=== PATIENT | male | born 2000 | race African-American/Black ===

== ENCOUNTER 2018-01-12 21:59 | Emergency (ER) | payer SELFPAY ==
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
[2018-01-13 00:15] VITALS: BP 172/63
--- NOTE | 2018-01-13 08:17 | RAD ---
Indication: RIGHT shoulder pain. Injury 2 months ago. Difficulty lifting and extending arm. Comparison: No relevant prior exams available on the [facility] P[facility] for comparison. Technique: Internal rotation AP, external rotation Grashey, scapular Y, axillary views RIGHT shoulder REPORT AND IMPRESSION: #. Negative for fracture. Normal acromioclavicular and glenohumeral joint alignment. Suggestion of potential os acromiale accessory ossicle at the acromion process. Unremarkable soft tissue contours. R0
== END 2018-01-13 00:13 | disposition home or self-care (01) ==
LOC: ED 21:59
DX: M25.511 Pain in right shoulder (principal); Z87.828 Personal history of other (healed) physical injury and trauma
CPT/HCPCS: 99282

== ENCOUNTER 2018-09-30 23:43 | Emergency (ER) | payer OTHER ==
[2018-10-01] MEDS ORDERED: Naproxen TAB* 250 MG PO ONE (01:13)
--- NOTE | 2018-10-01 02:04 | ED ---
Lower Extremity - HPI Summary HPI Summary: 17-year-old male presents with complaints of left ankle and foot pain. States he was playing basketball with clients at work, he jumped for the ball, and landed causing a "twisting" injury. States he was able to bear weight immediately after the injury but since the pain has progressively worsened and he has not bore any weight due to the pain. Denies numbness or tingling. - History of Current Complaint Chief Complaint: EDExtremityLower Stated Complaint: "TWISTED L ANKLE" PER PT Hx Obtained From: Patient Pain Intensity: 7 - Allergies/Home Medications Allergies/Adverse Reactions: Allergies Allergy/AdvReac Type Severity Reaction Status Date / Time iodine Allergy Nausea And Verified 09/30/18 23:48 Vomiting PMH/Surg Hx/FS Hx/Imm Hx Endocrine/Hematology History: Denies: Hx Anticoagulant Therapy, Hx Blood Disorders, Hx Blood Transfusions, Hx Bone Marrow Disease, Hx Diabetes, Hx Systemic Lupus Erythematosus, Hx Sickle Cell Disease, Hx Thyroid Disease, Hx Anemia, Hx Unexplained Bleeding, Other Endocrine/Hematological Disorders Cardiovascular History: Denies: Hx Aneurysm, Hx Angina, Hx Angioplasty, Hx Atrial Fibrillation, Hx Auto Implanted Cardiovert Defib, Hx Cardiac Arrest, Hx Cardiomegaly, Hx Congenital Heart Disease, Hx Congestive Heart Failure, Hx Coronary Artery Disease, Hx Deep Vein Thrombosis, Hx Embolism, Hx Hypercholesterolemia, Hx Hypotension, Hx Hypertension, Hx Myocardial Infarction, Hx Pacemaker/ICD, Hx Peripheral Vascular Disease, Hx Rheumatic Fever, Hx Syncope, Hx Valvular Heart Disease, Other Cardiovascular Problems/Disorders Respiratory History: Reports: Hx Asthma GI History: Denies: Hx Cirrhosis, Hx Crohn's Disease, Hx Diverticulosis, Hx Gall Bladder Disease, Hx Gastroesophageal Reflux Disease, Hx Gastrointestinal Bleed, Hx Hiatal Hernia, Hx Irritable Bowel, Hx Jaundice, Hx Obstructive Bowel, Hx Ileostomy, Hx Pyloric Stenosis, Hx Ulcer, Hx Urosepsis, Other GI Disorders History: Denies: Hx Acute Renal Failure, Hx Benign Prostatic Hyperplasia, Hx Chronic Renal Failure, Hx Dialysis, Hx Kidney Infection, Hx Kidney Stones, Hx Renal Disease, Other Problems/Disorders Sensory History: Denies: Hx Cataracts, Hx Contacts or Glasses, Hx Eye Injury, Hx Eye Prosthesis, Hx Glaucoma, Hx Legally Blind, Hx Macular Degeneration, Hx Vision Problem, Hx Deafness, Hx Hearing Aid, Hx Hearing Problem, Other Sensory Impairments Opthamlomology History: Denies: Hx Cataracts, Hx Contacts or Glasses, Hx Eye Injury, Hx Eye Prosthesis, Hx Glaucoma, Hx Legally Blind, Hx Macular Degeneration, Hx Vision Problem, Other Sensory Impairments Neurological History: Denies: Hx CVA, Hx Dementia, Hx Developmental Delay, Hx Headaches, Hx Migraine, Hx Nerve Disease, Hx Peripheral Neuropathy, Hx Seizures, Hx Spinal Cord Injury, Hx Transient Ischemic Attacks (TIA), Other Neuro Impairments/ Disorders - Immunization History Immunizations Up to Date: Yes Infectious Disease History: No Infectious Disease History: Denies: Traveled Outside the [place] in Last 30 Days - Family History Known Family History: Positive: Non-Contributory - Social History Occupation: Employed Full-time Lives: With Family Alcohol Use: None Substance Use Type: Reports: None Hx Tobacco Use: No Smoking Status (MU): Never Smoked Tobacco Review of Systems Constitutional: Negative Cardiovascular: Negative Respiratory: Negative Gastrointestinal: Negative Genitourinary: Negative Musculoskeletal: Other - See HPI Skin: Negative Neurological: Negative All Other Systems Reviewed And Are Negative: Yes Physical Exam - Summary Physical Exam Summary: GENERAL APPEARANCE: Well developed, well nourished, alert and cooperative, and appears to be in no acute distress. CARDIAC: Normal S1 and S2. No S3, S4 or murmurs. Rhythm is regular. There is no peripheral edema, cyanosis or pallor. Extremities are warm and well perfused. Capillary refill is less than 2 seconds. Peripheral pulses intact. LUNGS: Clear to auscultation without rales, rhonchi, wheezing or diminished breath sounds. ABDOMEN: Positive bowel sounds. Soft, nondistended, nontender. No guarding or rebound. No masses or hepatosplenomegally. MUSKULOSKELETAL: Normal muscular development. Non-weightbearing left lower extremity. EXTREMITIES: Mild tenderness to the dorsal left foot over the proximal 1st and 2nd metatarsals and to the medial malleolus. No erythema, ecchymosis, edema, or gross deformity noted. Circlulation and sensation intact. SKIN: Skin normal color, texture and turgor with no lesions or eruptions. Triage Information Reviewed: Yes Vital Signs On Initial Exam: Initial Vitals Temp Pulse Resp BP Pulse Ox 98.8 F 84 16 140/89 100 09/30/18 23:45 09/30/18 23:45 09/30/18 23:45 09/30/18 23:45 09/30/18 23:45 Vital Signs Reviewed: Yes Diagnostics - Vital Signs Vital Signs Temp Pulse Resp BP Pulse Ox 09/30/18 23:45 98.8 F 84 16 140/89 100 - Laboratory Lab Statement: Any lab studies that have been ordered have been reviewed, and results considered in the medical decision making process. - Radiology No standard instances Radiology Interpretation Completed By: ED Physician - No acute fracture or dislocation Lower Extremity Course/Dx - Course Course Of Treatment: 17-year-old male presents with complaints of left ankle and foot pain. States he was playing basketball with clients at work, he jumped for the ball, and landed causing a "twisting" injury. States he was able to bear weight immediately after the injury but since the pain has progressively worsened and he has not bore any weight due to the pain. Denies numbness or tingling. Afebrile. VSS. Patient had mild tenderness to the dorsal left foot over the proximal 1st and 2nd metatarsals and to the medial malleolus. No erythema, ecchymosis, edema, or gross deformity noted. Circlulation and sensation intact. Exam otherswise unremarkable. Patient was given naproxen 500 mg 1 tab PO for pain. X-ray of the left foot and ankle showed no acute fracture or dislocation. Will treat for an acute sprain of the left foot and ankle. Patient was placed in CAM boot by the RN. Circulation and sensation intact pre- and post-application. He was provided crutches for progressive return to weightbearing. Recommending OTC analgesics and RICE. He is to follow up with orthopedic surgery in 7 days if no improvement in symptoms. Anticipatory guidance and warning symptoms were reviewed with the patient. Verbalizes understanding and agrees with POC. - Diagnoses Differential Diagnosis/HQI/PQRI: Positive: Contusion, Dislocation, Fracture ( Closed), Sprain Provider Diagnoses: Sprain of left foot, Sprain of left ankle Discharge - Sign-Out/Discharge Documenting (check all that apply): Patient Departure Patient Received Moderate/Deep Sedation with Procedure: No - Discharge Plan Condition: Stable Disposition: HOME Patient Education Materials: Ankle Sprain (ED), Foot Sprain (ED) Forms: *Work Release Referrals: Hayden Upton DO [Primary Care Provider] - Suman Mackey MD [Medical Doctor] - 7 Days Additional Instructions: The x-ray performed in the clinic today showed no evidence of a fracture. I suspect that you sprained your foot and ankle. The x-rays will be reviewed by the radiologist tomorrow and we will notify you if they see anything that would change your plan of care. Rest the foot/ankle as much as possible. Wear the CAM boot that was applied in the emergency room until you are pain-free. You may walk and bear weight as tolerated. Use the crutches that were provided to progressively increase the amount of weight you can bear. Apply ice to the affected area for 15-20 minutes at least 4 times a day to help with the pain and swelling. Elevate the foot to help reduce swelling. Take acetaminophen (Tylenol) or ibuprofen (Advil, Motrin) according to directions as needed for pain. Follow up with orthopedic surgery in 7 days if symptoms do not improve. Call for appointment. Seek immediate medical attention if you have severe pain not managed with pain medication, you are unable to walk or bear any weight, develop numbness or tingling in the foot or toes, or have any worsening of symptoms. - Billing Disposition and Condition Condition: STABLE Disposition: Home
[2018-10-01 02:33] VITALS: BP 121/78
== END 2018-10-01 02:32 | disposition home or self-care (01) ==
LOC: ED 23:43
DX: S93.602A Unspecified sprain of left foot, initial encounter (principal); S93.402A Sprain of unspecified ligament of left ankle, initial encounter; X50.1XXA Overexertion from prolonged static or awkward postures, initial encounter; Y93.67 Activity, basketball; Y92.9 Unspecified place or not applicable; Y99.0 Civilian activity done for income or pay; J45.909 Unspecified asthma, uncomplicated
CPT/HCPCS: 99282; A9270-GY

== ENCOUNTER 2019-02-27 15:46 | Inpatient (IN) | payer OTHER ==
[2019-02-27 16:28] LABS: Urine Appearance Clear; Urine Bacteria Absent (Absent); Urine Bilirubin Negative (Negative); Urine Blood Negative (Negative); Urine Color Yellow; Urine Glucose Negative (Negative); Urine Ketones Negative (Negative); Urine Nitrite Negative (Negative); Urine Protein 1+(30 mg/dL) (Negative); Urine Red Blood Cell Absent (Absent); Urine Urobilinogen Negative (Negative); Urine White Blood Cell Trace(0-5/hpf) (Absent)
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
[2019-02-27 16:38] LABS: ABS Basophils 0.1 10^3/ul (0-0.2); ABS Eosinophils 0.2 10^3/ul (0-0.6); ABS Lymphocytes 1.5 10^3/ul (1.0-4.8); ABS Monocytes 0.9 10^3/ul (0-0.8); ABS Neutrophils 7.1 10^3/ul (1.5-7.7); Eosinophil % 2.4 %; Hematocrit 46 % (42-52); Hemoglobin 15.6 g/dL (14.0-18.0); Lymphocyte % 15.7 %; Mean Corpuscular HGB Conc 34 g/dL (31-36); Mean Corpuscular Hemoglobin 29 pg (27-31); Mean Corpuscular Volume 85 fL (80-94); Mean Platelet Volume 8.6 fL (7.4-10.4); Nucleated Red Blood Cells % 0.1; Platelet Count 217 10^3/uL (150-450); Red Blood Count 5.38 10^6 /uL (4.18-5.48); Red Cell Distribution Width 14 % (10-15); White Blood Count 9.8 10^3/uL (3.5-10.8)
[2019-02-27 17:09] LABS: ALT 20 U/L (7-52); AST 17 U/L (13-39); Albumin 4.5 g/dL (3.2-5.2); Albumin/Globulin Ratio 1.6 (1-3); Alkaline Phosphatase 71 U/L (34-104); Anion Gap 6 mmol/L (2-11); BUN/Creatinine Ratio 13.4 (8-20); Blood Urea Nitrogen 11 mg/dL (6-24); CO2 Carbon Dioxide 27 mmol/L (22-32); Calcium 9.6 mg/dL (8.6-10.3); Chloride 106 mmol/L (101-111); EGFR African American 144.9 (>60); EGFR Non-African American 119.8 (>60); Globulin 2.8 g/dL (2-4); Glucose 99 mg/dL (70-100); Potassium 3.5 mmol/L (3.5-5.0); Sodium 139 mmol/L (135-145); Total Protein 7.3 g/dL (6.4-8.9)
[2019-02-27 17:10] LABS: Urine Benzodiazepine Screen None Detected (None Detect); Urine Opiates Screen None Detected (None Detect)
[2019-02-27 17:11] LABS: TSH (Thyroid Stimulating Horm) 0.57 mcIU/mL (0.34-5.60)
[2019-02-27 17:14] LABS: Acetaminophen < 15 mcg/mL; Alcohol < 10 mg/dL (<10); Salicylate < 2.50 mg/dL (<30)
[2019-02-27] MEDS: Nicotine PATCH 14 MG/24 HR* PATCH TRANSDERM ONE (18:04)
[2019-02-27] MEDS ORDERED: LORazepam TAB(*) 1 MG PO ONE (18:42)
--- NOTE | 2019-02-28 06:05 | ED ---
Progress - Progress Note Progress Note: Patient is received as a sign out from TOMMY Ariza at 02/28/19 0230 shift end pending disposition of this mental health patient. As there are no appropriate beds available at [facility], the patient is slated to be transferred to another psychiatric facility for admission. There were no changes in the status of this patient over the course of shift. Patient is signed out to Dr. Mosher at 0700 02/28/19 shift change pending disposition. - Consult/PCP Time Called: 21:17 Course/Dx - Course Course Of Treatment: 18 year old male signed out at change of shift to ny with suicidal ideation. rested comfortably overnight and was changed out at change of shift in am - Diagnoses Provider Diagnoses: Depression Discharge ED - Sign-Out/Discharge Documenting (check all that apply): Sign-Out Patient Signing out patient TO: Nasrin Mosher - Discharge Plan Condition: Stable Disposition: [facility]IATRIC FAC[facility] [place] - Billing Disposition and Condition Condition: STABLE Disposition: Psychiatric Facility [facility] [place] - Attestation Statements Document Initiated by Scribe: Yes Documenting Scribe: PATRICK BATES Provider For Whom Scribe is Documenting (Include Credential): MELODIE GIRALDO MD Scribe Attestation: IPATRICK, scribed for MELODIE GIRALDO MD on 03/01/19 at 0041. Scribe Documentation Reviewed: Yes Provider Attestation: The documentation as recorded by the scribePATRICK accurately reflects the service I personally performed and the decisions made by ny, MELODIE GIRALDO MD Status of Scribe Document: Viewed
--- NOTE | 2019-02-28 07:10 | ED ---
Progress - Progress Note Progress Note: Pt is a sign out from Dr. Ludmila Kelly at 07:00 on 02/28/19 at shift change, pending MH transfer. At 08:01, MH precision assembly inspector states that pt requires inpatient hospitalization. At 11:22, MH precision assembly inspector reports that pts case was reviewed by Dr. Mendoza who will involuntarily admit the pt to [facility] with a diagnosis of unspecified depression. Course/Dx - Diagnoses Provider Diagnoses: Depression Discharge ED - Sign-Out/Discharge Documenting (check all that apply): Patient Departure - Admit, Receiving Sign- Out Receiving patient FROM: Ludmila Kelly - 07:00 on 02/28/19 - Discharge Plan Condition: Stable Disposition: PSYCHIATRIC FACILITY-[facility] Forms: *Work Release Referrals: Hayden Upton DO [Primary Care Provider] - - Attestation Statements Document Initiated by Scribe: Yes Documenting Scribe: Nithya Sal Provider For Whom Scribe is Documenting (Include Credential): Nasrin Mosher MD Scribe Attestation: I, Nithya Sal, scribed for Nasrin Mosher MD on 02/28/19 at 1124. Status of Scribe Document: Ready
[2019-02-28] MEDS: Nicotine PATCH 14 MG/24 HR* PATCH TRANSDERM ONE (09:12)
[2019-02-28] MEDS ORDERED: Al Hydrox/Mg Hydrox/Simet LIQ* 30 ML UDC PO PRN (11:58)
[2019-02-28] MEDS ORDERED: Acetaminophen TAB* 325 MG PO PRN (11:58)
[2019-02-28] MEDS ORDERED: LORazepam TAB(*) 1 MG PO ONE (12:50)
[2019-02-28] MEDS ORDERED: Nicotine PATCH 21 MG/24 HR* PATCH TRANSDERM ONE (13:00)
[2019-02-28] MEDS ORDERED: chlorproMAZINE TAB* 50 MG ONE (20:44)
[2019-02-28] MEDS ORDERED: chlorproMAZINE TAB* 50 MG PO PRN (21:21)
[2019-02-28] MEDS ORDERED: diPHENhydraMINE PO* 50 MG PO PRN (21:22)
[2019-03-01] MEDS ORDERED: Nicotine* 4MG (FRUIT FLAVOR) GUM PO PRN (08:17)
[2019-03-01 08:55] VITALS: BP 152/74
[2019-03-01] MEDS ORDERED: Vitamin THERAPEUTIC TAB PO SCH (09:00)
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
[2019-03-01] MEDS ORDERED: Nicotine Patch Removal NOTE FOLLOW UP SCH (21:00)
[2019-03-02] MEDS ORDERED: Nicotine PATCH 21 MG/24 HR* PATCH TRANSDERM SCH (08:00)
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
== END 2019-03-01 13:38 | disposition home or self-care (01) | DRG 755 ==
LOC: ED 15:46 → BSU 02-28 11:58
PROVIDERS: ADMIT Psychiatry & Neurology Psychiatry; ATTEND Psychiatry & Neurology Psychiatry
DX: F43.20 Adjustment disorder, unspecified (principal); R45.851 Suicidal ideations; Z62.810 Personal history of physical and sexual abuse in childhood; J45.909 Unspecified asthma, uncomplicated; S60.512A Abrasion of left hand, initial encounter; S60.511A Abrasion of right hand, initial encounter; X58.XXXA Exposure to other specified factors, initial encounter; F17.200 Nicotine dependence, unspecified, uncomplicated; Y92.9 Unspecified place or not applicable; Z72.89 Other problems related to lifestyle; Z91.041 Radiographic dye allergy status
CPT/HCPCS: 36415; 80053; 80307; 80320; 80329; 81003; 81015; 84443; 85025; 87086; 93005; 99238; 99284; A9270-GY; G0480

== ENCOUNTER 2019-06-02 20:36 | Emergency (ER) | payer OTHER ==
--- NOTE | 2019-06-02 23:07 | ED ---
Upper Extremity Pain - HPI Summary HPI Summary: 18 year old male with no significant PMH presents to the ED complaining of 8/10 right shoulder pain which is made worse with movement. Pt denies recent trauma. Pt states he has had chronic shoulder pain x 2 years but it has gotten worse in the last 4 days. PT has full ROM however it is done with pain. PT is neurovascularly intact and has no gross deformity or ecchymosis or erythema. Pt otherwise feels well and denies fever, CP, abd pain, SOB, cough, rash. - History of Current Complaint Chief Complaint: EDShouldNelson Stated Complaint: R SHOULDER PAIN/BACK PAIN PER PT Time Seen by Provider: 06/02/19 23:04 Hx Obtained From: Patient Mechanism Of Injury: Unknown Onset/Duration: Started Days Ago Timing: Constant Severity Initially: Severe Severity Currently: Severe Pain Location: Shoulder, Arm Character: Aching Aggravating Factor(s): Movement, Lifting, Flexion, Extension, Internal/External Rotation Alleviating Factor(s): Rest - Allergies/Home Medications Allergies/Adverse Reactions: Allergies Allergy/AdvReac Type Severity Reaction Status Date / Time iodine Allergy Nausea And Verified 02/27/19 16:08 Vomiting PMH/Surg Hx/FS Hx/Imm Hx Endocrine/Hematology History: Denies: Hx Anticoagulant Therapy, Hx Blood Disorders, Hx Blood Transfusions, Hx Bone Marrow Disease, Hx Diabetes, Hx Systemic Lupus Erythematosus, Hx Sickle Cell Disease, Hx Thyroid Disease, Hx Anemia, Hx Unexplained Bleeding, Other Endocrine/Hematological Disorders Cardiovascular History: Denies: Hx Aneurysm, Hx Angina, Hx Angioplasty, Hx Atrial Fibrillation, Hx Auto Implanted Cardiovert Defib, Hx Cardiac Arrest, Hx Cardiomegaly, Hx Congenital Heart Disease, Hx Congestive Heart Failure, Hx Coronary Artery Disease, Hx Deep Vein Thrombosis, Hx Embolism, Hx Hypercholesterolemia, Hx Hypotension, Hx Hypertension, Hx Myocardial Infarction, Hx Pacemaker/ICD, Hx Peripheral Vascular Disease, Hx Rheumatic Fever, Hx Syncope, Hx Valvular Heart Disease, Other Cardiovascular Problems/Disorders Respiratory History: Reports: Hx Asthma GI History: Denies: Hx Cirrhosis, Hx Crohn's Disease, Hx Diverticulosis, Hx Gall Bladder Disease, Hx Gastroesophageal Reflux Disease, Hx Gastrointestinal Bleed, Hx Hiatal Hernia, Hx Irritable Bowel, Hx Jaundice, Hx Obstructive Bowel, Hx Ileostomy, Hx Pyloric Stenosis, Hx Ulcer, Hx Urosepsis, Other GI Disorders History: Denies: Hx Acute Renal Failure, Hx Benign Prostatic Hyperplasia, Hx Chronic Renal Failure, Hx Dialysis, Hx Kidney Infection, Hx Kidney Stones, Hx Renal Disease, Other Problems/Disorders Sensory History: Denies: Hx Cataracts, Hx Contacts or Glasses, Hx Eye Injury, Hx Eye Prosthesis, Hx Glaucoma, Hx Legally Blind, Hx Macular Degeneration, Hx Vision Problem, Hx Deafness, Hx Hearing Aid, Hx Hearing Problem, Other Sensory Impairments Opthamlomology History: Denies: Hx Cataracts, Hx Contacts or Glasses, Hx Eye Injury, Hx Eye Prosthesis, Hx Glaucoma, Hx Legally Blind, Hx Macular Degeneration, Hx Vision Problem, Other Sensory Impairments Neurological History: Denies: Hx CVA, Hx Dementia, Hx Developmental Delay, Hx Headaches, Hx Migraine, Hx Nerve Disease, Hx Peripheral Neuropathy, Hx Seizures, Hx Spinal Cord Injury, Hx Transient Ischemic Attacks (TIA), Other Neuro Impairments/ Disorders Psychiatric History: Reports: Hx Eating Disorder - "stopped eating age 14", Hx of Violent Episodes Against Others Infectious Disease History: No Infectious Disease History: Denies: Traveled Outside the [place] in Last 30 Days - Family History Known Family History: Positive: None, Non-Contributory - Social History Alcohol Use: Occasionally Substance Use Type: Reports: Marijuana Hx Tobacco Use: No Smoking Status (MU): Current Every Day Smoker Review of Systems Constitutional: Negative Eyes: Negative ENT: Negative Cardiovascular: Negative Respiratory: Negative Gastrointestinal: Negative Genitourinary: Negative Positive: Arthralgia, Myalgia Skin: Negative Neurological: Negative Psychological: Normal All Other Systems Reviewed And Are Negative: Yes Physical Exam - Summary Physical Exam Summary: No obvious deformity, ecchymosis, erythema, edema of the right shoulder or arm. Pt has full ROM although this is done with pain. Negative empty can, drop arm, AC cross over test. Pt neurovascularly intact. Triage Information Reviewed: Yes Vital Signs On Initial Exam: Initial Vitals Temp Pulse Resp BP Pulse Ox 99.5 F 85 20 137/100 100 06/02/19 20:49 06/02/19 20:49 06/02/19 20:49 06/02/19 20:49 06/02/19 20:49 Vital Signs Reviewed: Yes Appearance: Positive: Well-Appearing, No Pain Distress, Well-Nourished Skin: Positive: Warm, Skin Color Reflects Adequate Perfusion Eyes: Positive: EOMI, KRISH ENT: Positive: Hearing grossly normal Respiratory/Lung Sounds: Positive: Clear to Auscultation, Breath Sounds Present Cardiovascular: Positive: RRR, S1, S2 Abdomen Description: Positive: Nontender, Soft Bowel Sounds: Positive: Present Musculoskeletal: Positive: Strength/ROM Intact Neurological: Positive: Sensory/Motor Intact, Alert, Oriented to Person Place, Time, Normal Gait, Facial Symmetry, Speech Normal Psychiatric: Positive: Normal, Affect/Mood Appropriate AVPU Assessment: Alert Procedures - Sedation Patient Received Moderate/Deep Sedation with Procedure: No Diagnostics - Vital Signs Vital Signs Temp Pulse Resp BP Pulse Ox 06/02/19 20:49 99.5 F 85 20 137/100 100 - Laboratory Lab Statement: Any lab studies that have been ordered have been reviewed, and results considered in the medical decision making process. Course/Dx - Course Course Of Treatment: pt evaluated for shoulder pain. Vitals noted. Negative empty can, drop arm, AC cross over. Xray of the right shoulder negative for fracture. PT likely suffering from muscle strain. Pt given 600mg ibuprofen and told to follow up with PCP for further evaluation, and to practice R.I.C.E therapy. - Diagnoses Differential Diagnosis/HQI/PQRI: Positive: Arthritis, Contusion, Fracture ( Closed), Strain, Sprain Provider Diagnoses: Shoulder pain, right Discharge ED - Sign-Out/Discharge Documenting (check all that apply): Patient Departure - Discharge Plan Condition: Stable Disposition: HOME Patient Education Materials: Shoulder Pain (ED) Referrals: Hayden Upton DO [Primary Care Provider] - 3 Days Additional Instructions: You were seen in the emergency department today for shoulder pain. Please follow up with PCP 5 days for further evaluation and management of your injury. Until you are seen by PCP please return to activity is tolerated. For further alleviation of your symptoms please practice R.I.C.E therapy. Rest, Ice, compress, elevate the affected area. * Ibuprofen 600mg three times daily with meals for pain. * If numbness, tingling, decreased sensation, increased pain, temperature changes or pallor noted in toes, come back to ER immediately. * Protect the area. For your comfort level, do not bear weight, pull or push until you can injury is somewhat healed. This may involve the need for immobilization or crutches for a period of time. * Rest the involved area, but not too long. You may need to be off your injury for some time to allow for healing, however excessive immobilization of joints can lead to stiffness and delay healing time. Early mobilization is encouraged if it is pain-free. * Ice: Not directly on the skin. Cover with a towel. Apply ice no more than 30 minutes at a time * - Billing Disposition and Condition Condition: STABLE Disposition: Home
[2019-06-02] MEDS ORDERED: Ibuprofen TAB* 600 MG PO ONE (23:45)
[2019-06-02 23:55] VITALS: BP 142/85
== END 2019-06-02 23:53 | disposition home or self-care (01) ==
LOC: ED 20:36
DX: M25.511 Pain in right shoulder (principal); F17.200 Nicotine dependence, unspecified, uncomplicated; Z91.041 Radiographic dye allergy status
CPT/HCPCS: 99282; A9270-GY

== ENCOUNTER 2019-07-02 07:12 | Emergency (ER) | payer OTHER ==
[2019-07-02 07:17] VITALS: BP 156/97
--- NOTE | 2019-07-02 07:42 | ED ---
Throat Pain/Nasal Congestion - HPI Summary HPI Summary: This patient is a 18-year-old otherwise healthy male who presents to the ED with left lower jaw pain over tooth #20 and 21. Symptoms began yesterday suddenly have been progressively worsening. Denies any swelling. Denies any erythema over the cheek. He endorses radiation of pain to the TMJ and into the head. Denies any headache. Symptoms rated a 8/10. Symptoms improved greatly with tylenol. - History of Current Complaint Chief Complaint: EDDentalPain Time Seen by Provider: 07/02/19 07:20 Hx Obtained From: Patient Onset/Duration: Sudden Onset Severity: Moderate Associated Signs And Symptoms: Negative: Dysphagia, FB Sensation, Drooling, Wheezing - Epiglottits Risk Factors Epiglottis Risk Factors: Negative - Allergies/Home Medications Allergies/Adverse Reactions: Allergies Allergy/AdvReac Type Severity Reaction Status Date / Time iodine Allergy Nausea And Verified 07/02/19 07:16 Vomiting Home Medications: Home Medications Penicillin VK 500 MG TAB(NF) [Penicillin VK 500 mg Tab(NF)] 500 mg PO QID #20 tab MDD 4 07/02/19 [Rx] PMH/Surg Hx/FS Hx/Imm Hx Previously Healthy: Yes Endocrine/Hematology History: Denies: Hx Anticoagulant Therapy, Hx Blood Disorders, Hx Blood Transfusions, Hx Bone Marrow Disease, Hx Diabetes, Hx Systemic Lupus Erythematosus, Hx Sickle Cell Disease, Hx Thyroid Disease, Hx Anemia, Hx Unexplained Bleeding, Other Endocrine/Hematological Disorders Cardiovascular History: Denies: Hx Aneurysm, Hx Angina, Hx Angioplasty, Hx Atrial Fibrillation, Hx Auto Implanted Cardiovert Defib, Hx Cardiac Arrest, Hx Cardiomegaly, Hx Congenital Heart Disease, Hx Congestive Heart Failure, Hx Coronary Artery Disease, Hx Deep Vein Thrombosis, Hx Embolism, Hx Hypercholesterolemia, Hx Hypotension, Hx Hypertension, Hx Myocardial Infarction, Hx Pacemaker/ICD, Hx Peripheral Vascular Disease, Hx Rheumatic Fever, Hx Syncope, Hx Valvular Heart Disease, Other Cardiovascular Problems/Disorders Respiratory History: Reports: Hx Asthma GI History: Denies: Hx Cirrhosis, Hx Crohn's Disease, Hx Diverticulosis, Hx Gall Bladder Disease, Hx Gastroesophageal Reflux Disease, Hx Gastrointestinal Bleed, Hx Hiatal Hernia, Hx Irritable Bowel, Hx Jaundice, Hx Obstructive Bowel, Hx Ileostomy, Hx Pyloric Stenosis, Hx Ulcer, Hx Urosepsis, Other GI Disorders History: Denies: Hx Acute Renal Failure, Hx Benign Prostatic Hyperplasia, Hx Chronic Renal Failure, Hx Dialysis, Hx Kidney Infection, Hx Kidney Stones, Hx Renal Disease, Other Problems/Disorders Sensory History: Denies: Hx Cataracts, Hx Contacts or Glasses, Hx Eye Injury, Hx Eye Prosthesis, Hx Glaucoma, Hx Legally Blind, Hx Macular Degeneration, Hx Vision Problem, Hx Deafness, Hx Hearing Aid, Hx Hearing Problem, Other Sensory Impairments Opthamlomology History: Denies: Hx Cataracts, Hx Contacts or Glasses, Hx Eye Injury, Hx Eye Prosthesis, Hx Glaucoma, Hx Legally Blind, Hx Macular Degeneration, Hx Vision Problem, Other Sensory Impairments Neurological History: Denies: Hx CVA, Hx Dementia, Hx Developmental Delay, Hx Headaches, Hx Migraine, Hx Nerve Disease, Hx Peripheral Neuropathy, Hx Seizures, Hx Spinal Cord Injury, Hx Transient Ischemic Attacks (TIA), Other Neuro Impairments/ Disorders Psychiatric History: Reports: Hx Eating Disorder - "stopped eating age 14", Hx of Violent Episodes Against Others - Immunization History Hx Pertussis Vaccination: No Immunizations Up to Date: Yes Infectious Disease History: No Infectious Disease History: Denies: Traveled Outside the [place] in Last 30 Days - Family History Known Family History: Positive: None, Non-Contributory - Social History Occupation: Unemployed Lives: Alone Alcohol Use: Occasionally Hx Substance Use: Yes Substance Use Type: Reports: Marijuana Hx Tobacco Use: No Smoking Status (MU): Current Every Day Smoker Review of Systems Negative: Fever, Chills, Fatigue, Skin Diaphoresis Positive: Dental Pain Negative: Palpitations, Chest Pain Negative: Abdominal Pain, Vomiting, Diarrhea, Nausea Genitourinary: Negative Positive: no symptoms reported, see HPI Negative: Arthralgia, Myalgia Skin: Negative All Other Systems Reviewed And Are Negative: Yes Physical Exam Triage Information Reviewed: Yes Vital Signs On Initial Exam: Initial Vitals Temp Pulse Resp BP Pulse Ox 98.5 F 73 19 156/97 99 07/02/19 07:13 07/02/19 07:13 07/02/19 07:13 07/02/19 07:13 07/02/19 07:13 Vital Signs Reviewed: Yes Appearance: Positive: Well-Appearing, Well-Nourished Skin: Positive: Warm, Skin Color Reflects Adequate Perfusion Head/Face: Positive: Normal Head/Face Inspection Eyes: Positive: KRISH, Conjunctiva Clear Dental: Positive: Other - left sided lower dental pain Neck: Positive: Supple, No Lymphadenopathy Respiratory/Lung Sounds: Positive: Clear to Auscultation, Breath Sounds Present Cardiovascular: Positive: RRR, Pulses are Symmetrical in both Upper and Lower Extremities Musculoskeletal: Positive: Normal Neurological: Positive: Speech Normal Psychiatric: Positive: Normal, Affect/Mood Appropriate Procedures - Sedation Patient Received Moderate/Deep Sedation with Procedure: No Diagnostics - Vital Signs Vital Signs Temp Pulse Resp BP Pulse Ox 07/02/19 07:32 98.5 F 73 19 156/97 99 07/02/19 07:13 98.5 F 73 19 156/97 99 - Laboratory Lab Statement: Any lab studies that have been ordered have been reviewed, and results considered in the medical decision making process. EENT Course/Dx - Course Course Of Treatment: No dental abscess or lesions seen over area of concern. No erythema at the site of pain. No drainage from area. Pain on palpation over mandible. No TMJ tenderness. No pain with opening and closing mouth. Poor dental hygiene and outpatient dental care. Will treat for possible dental infection/abscess based on symptoms of pain and radiation to jaw and ear. No allergies. Will treat with Penicillin. Patient to follow up immediately with dentist. - Differential Diagnoses Differential Diagnoses: Other - dental infection - Diagnoses Provider Diagnoses: Pain, dental Discharge ED - Sign-Out/Discharge Documenting (check all that apply): Patient Departure - Discharge Plan Condition: Stable Disposition: HOME Prescriptions: Penicillin VK 500 MG TAB(NF) [Penicillin VK 500 mg Tab(NF)] 500 mg PO QID #20 tab MDD 4 Patient Education Materials: Toothache (ED) Referrals: Hayden Upton DO [Primary Care Provider] - Additional Instructions: You have been diagnosed with dental pain with possible infection: Antibiotics as prescribed to you. Penicillin four times daily x 5 days. To minimize the potential for gastrointestinal intolerance, Penicillin should be taken at the start of a meal. If you have any questions about your medication, please contact us or ask your pharmacist. Salt water rinses several times per day will improve healing time. Ibuprofen 600mg four times daily with meals for discomfort. Tylenol 650mg four times daily for pain Use these medications intermittently May use over the counter ambesol or clove oil for discomfort Follow up with a dentist for routine care to prevent recurrence of infections. If fever, worsening pain or swelling develops, see your PCP, dentist or come back to the Emergency Department. - Billing Disposition and Condition Condition: STABLE Disposition: Home - Attestation Statements Provider Attestation: I was available for consult. This patient was seen by the [facility]. The patient was not presented to, seen by, or examined by me. Mack Real MD
== END 2019-07-02 07:32 | disposition home or self-care (01) ==
LOC: ED 07:12
DX: K08.89 Other specified disorders of teeth and supporting structures (principal); F17.210 Nicotine dependence, cigarettes, uncomplicated
CPT/HCPCS: 99282

== ENCOUNTER 2019-07-21 12:44 | Emergency (ER) | payer OTHER ==
--- NOTE | 2019-07-21 12:55 | ED ---
Laceration/Wound HPI - HPI Summary HPI Summary: Pt. is a 18 y.o male who presents to the ER for right arm laceration. Pt. states [place], fell and cut his right forearm on a piece of metal. NO other injuries sustained. Pt. states his last tetanus was last year. Sxs are mild in severity. No current modifying factors. - History of Current Complaint Stated Complaint: LACERATION TO RIGHT ARM PER PT Time Seen by Provider: 07/21/19 12:51 Hx Obtained From: Patient Pain Intensity: 4 - Allergy/Home Medications Allergies/Adverse Reactions: Allergies Allergy/AdvReac Type Severity Reaction Status Date / Time iodine Allergy Nausea And Verified 07/21/19 12:48 Vomiting Home Medications: Home Medications Cephalexin CAP* [Keflex CAP*] 500 mg PO BID #20 cap 07/21/19 [Rx] PMH/Surg Hx/FS Hx/Imm Hx Previously Healthy: Yes Endocrine/Hematology History: Denies: Hx Anticoagulant Therapy, Hx Blood Disorders, Hx Blood Transfusions, Hx Bone Marrow Disease, Hx Diabetes, Hx Systemic Lupus Erythematosus, Hx Sickle Cell Disease, Hx Thyroid Disease, Hx Anemia, Hx Unexplained Bleeding, Other Endocrine/Hematological Disorders Cardiovascular History: Denies: Hx Aneurysm, Hx Angina, Hx Angioplasty, Hx Atrial Fibrillation, Hx Auto Implanted Cardiovert Defib, Hx Cardiac Arrest, Hx Cardiomegaly, Hx Congenital Heart Disease, Hx Congestive Heart Failure, Hx Coronary Artery Disease, Hx Deep Vein Thrombosis, Hx Embolism, Hx Hypercholesterolemia, Hx Hypotension, Hx Hypertension, Hx Myocardial Infarction, Hx Pacemaker/ICD, Hx Peripheral Vascular Disease, Hx Rheumatic Fever, Hx Syncope, Hx Valvular Heart Disease, Other Cardiovascular Problems/Disorders Respiratory History: Reports: Hx Asthma GI History: Denies: Hx Cirrhosis, Hx Crohn's Disease, Hx Diverticulosis, Hx Gall Bladder Disease, Hx Gastroesophageal Reflux Disease, Hx Gastrointestinal Bleed, Hx Hiatal Hernia, Hx Irritable Bowel, Hx Jaundice, Hx Obstructive Bowel, Hx Ileostomy, Hx Pyloric Stenosis, Hx Ulcer, Hx Urosepsis, Other GI Disorders History: Denies: Hx Acute Renal Failure, Hx Benign Prostatic Hyperplasia, Hx Chronic Renal Failure, Hx Dialysis, Hx Kidney Infection, Hx Kidney Stones, Hx Renal Disease, Other Problems/Disorders Sensory History: Denies: Hx Cataracts, Hx Contacts or Glasses, Hx Eye Injury, Hx Eye Prosthesis, Hx Glaucoma, Hx Legally Blind, Hx Macular Degeneration, Hx Vision Problem, Hx Deafness, Hx Hearing Aid, Hx Hearing Problem, Other Sensory Impairments Opthamlomology History: Denies: Hx Cataracts, Hx Contacts or Glasses, Hx Eye Injury, Hx Eye Prosthesis, Hx Glaucoma, Hx Legally Blind, Hx Macular Degeneration, Hx Vision Problem, Other Sensory Impairments Neurological History: Denies: Hx CVA, Hx Dementia, Hx Developmental Delay, Hx Headaches, Hx Migraine, Hx Nerve Disease, Hx Peripheral Neuropathy, Hx Seizures, Hx Spinal Cord Injury, Hx Transient Ischemic Attacks (TIA), Other Neuro Impairments/ Disorders Psychiatric History: Reports: Hx Eating Disorder - "stopped eating age 14", Hx of Violent Episodes Against Others Infectious Disease History: No Infectious Disease History: Denies: Traveled Outside the [place] in Last 30 Days - Family History Known Family History: Positive: None, Non-Contributory - Social History Occupation: Unemployed Lives: With Family Alcohol Use: Occasionally Hx Substance Use: Yes Substance Use Type: Reports: Marijuana Hx Tobacco Use: No Smoking Status (MU): Current Every Day Smoker Review of Systems Positive: Other Neurological/Mental Status: Negative Negative: Weakness, Paresthesia, Numbness All Other Systems Reviewed And Are Negative: Yes Physical Exam Triage Information Reviewed: Yes Vital Signs On Initial Exam: Initial Vitals Temp Pulse Resp BP Pulse Ox 98.5 F 83 16 141/68 100 07/21/19 12:46 07/21/19 12:46 07/21/19 12:46 07/21/19 12:46 07/21/19 12:46 Vital Signs Reviewed: Yes Appearance: Positive: Well-Appearing - Pt. sitting on bed in NAD. Friend present. Skin: Positive: Warm, Dry Head/Face: Positive: Normal Head/Face Inspection Eyes: Positive: Normal, EOMI Neck: Positive: Supple Musculoskeletal: Positive: Normal, Strength/ROM Intact, Other - 4cm linear deep laceration noted to the mid lateral right forearm. Extending 3cm of superifical lac. Full ROM of digits and wrist. No bony tenderness. No active bleeding. Neurological: Positive: Normal, CN Intact II-III Psychiatric: Positive: Affect/Mood Appropriate Procedures - Sedation Patient Received Moderate/Deep Sedation with Procedure: No - Laceration/Wound Repair 1 Location: upper extremity - right arm Description: Linear Anesthesia: Local, 1.0%, Lido Betadine Prep?: No - hibiclens Irrigated w/ Saline (ccs): 250 Laceration/Wound Explored: clean Closure: Single Layer Suture Type: Nylon Number of Sutures: 6 Layer Closure?: No Sterile Dressing Applied?: Yes Diagnostics - Vital Signs Vital Signs Temp Pulse Resp BP Pulse Ox 07/21/19 12:46 98.5 F 83 16 141/68 100 - Laboratory Lab Statement: Any lab studies that have been ordered have been reviewed, and results considered in the medical decision making process. Laceration Repair Course/Dx - Course Course Of Treatment: Pt. with deep arm laceration that occurred about 10 hours ago. Wound was extensively irrigated. Wound closed as noted above. Prophylactically treated with keflex. Suture removal in 10-14 days. Discussed daily wound care. Will return to ER for redness, swelling, or drainage from wound. - Differential Dx Differental Diagnoses: Laceration, Tendon Laceration - Clinical Impression Provider Diagnoses: Arm laceration Discharge ED - Sign-Out/Discharge Documenting (check all that apply): Patient Departure - Discharge Plan Condition: Good Disposition: HOME Prescriptions: Cephalexin CAP* [Keflex CAP*] 500 mg PO BID #20 cap Patient Education Materials: Care For Your Stitches (ED), Laceration (ED) Forms: *Work Release Referrals: Hayden Upton DO [Primary Care Provider] - Additional Instructions: Suture removal in 10-14 days Antibiotic as directed Keep wound clean and dry Wash with warm soap and water daily Return to ER for redness, swelling, or drainage from wound - Billing Disposition and Condition Condition: GOOD Disposition: Home - Attestation Statements Provider Attestation: I was available for consultation for this patient. I did not evaluate the patient or participate in any medical decision making or disposition decisions unless I am specifically named in the chart as having consulted on the patient. If I have consulted on the patient, please see my own ED note on the patient encounter. Nasrin Mosher MD
[2019-07-21 13:54] VITALS: BP 120/92
== END 2019-07-21 13:53 | disposition home or self-care (01) ==
LOC: ED 12:44
DX: S41.111A Laceration without foreign body of right upper arm, initial encounter (principal); W01.118A Fall on same level from slipping, tripping and stumbling with subsequent striking against other sharp object, initial encounter; Y92.9 Unspecified place or not applicable; J45.909 Unspecified asthma, uncomplicated; F17.200 Nicotine dependence, unspecified, uncomplicated; Z91.041 Radiographic dye allergy status
CPT/HCPCS: 12002; 99282